=== PATIENT | female | born 1975 | race African-American/Black ===

== ENCOUNTER 2016-08-25 07:38 | Emergency (ER) ==
[2016-08-25 07:54] VITALS: BP 135/89
[2016-08-25] MEDS ORDERED: NORCO-10 PO ONE (08:16)
--- NOTE | 2016-08-25 08:34 | Diag Imaging Result Document ---
PROCEDURE NAME: FINGER(S)-RIGHT - 08/25/2016 X-RAY RIGHT THUMB 3 VIEWS, 08/25/2016: COMPARISON: None. FINDINGS: Bones are intact and normally aligned. Joint spaces and soft tissues are clear. IMPRESSION: Negative exam.
--- NOTE | 2016-08-25 08:54 | PROVIDER DOCUMENTATION ---
HPI-General Adult - General Chief Complaint: Extremity Injury Stated Complaint: THUMB INJURY Time Seen by Provider: 08/25/16 07:47 Source: patient Allergies/Adverse Reactions: Patient Allergies Allergy/AdvReac Type Severity Reaction Status Date / Time No Known Allergies Allergy Verified 07/18/16 07:03 Home Medications: Home Medication List Medication Instructions Recorded Confirmed Last Taken Type Hydrocodone/Acetaminophen [[place] 1 each PO TID PRN PRN 03/13/14 07/18/16 History 10-325 Tablet] Clonazepam [Klonopin] 2 mg PO BID 11/16/15 07/18/16 01/29/16 History Albuterol Sulfate [Albuterol 8.5 gm IH Q4-6H PRN PRN #2 07/18/16 Unknown Rx Sulfate Hfa] [email or web address] Hydrocodone/APAP 7.5 mg/325 mg 1 each PO Q8H PRN PRN #10 tablet 08/25/16 Unknown Rx [[place]-7.5] - History of Present Illness -Gen Adult Nature of Presenting Problems: Slammed R thumb accidentally in a car door 10 AM yesterday morning. Location of Pain/Injury: reports: hand(s) Pain Radiation: reports: no radiation Quality of Pain: reports: aching, pressure, sharp Severity: reports: moderate Onset/Duration: reports: 24 hours ago Timing: reports: still present Context/Activities at Onset: reports: other (See above) Modifying Factors: improves with: rest. worse with: movement Associated Symptoms: reports: denies symptoms Similar Symptoms Previously?: No Recently seen or treated by another doctor?: No Review of Systems - Adult - REVIEW OF SYSTEMS - ADULT Constitutional: reports: no symptoms reported Eyes: reports: no symptoms reported Cardiovascular: reports: no symptoms reported Respiratory: reports: no symptoms reported Gastrointestinal: reports: no symptoms reported Musculoskeletal: reports: see HPI, joint pain, joint swelling Integumentary: reports: no symptoms reported Neurological: reports: no symptoms reported All Other Systems: Reviewed and Negative Past History - Adult - PAST MEDICAL HISTORY-ADULT Review of Records: reports: Nursing Assessment Review, Medications Reviewed Major Childhood Illnesses: reports: denies history Cardiovascular: reports: HTN Musculoskeletal: reports: arthritis, chronic pain (back) Psychiatric: reports: anxiety - PRIOR SURGERIES/PROCEDURES Surgical/Procedure History: reports: hysterectomy, - IMMUNIZATION STATUS Childhood Immunizations: See Nurse Assessment Flu Vaccine: See Nurse Assessment - FAMILY HISTORY Family History: reviewed, not pertinent, other (mother DM) Physical Exam-General - PHYSICAL EXAM-ADULT Initial Vital Signs Reviewed: Yes - CONSTITUTIONAL General Appearance: appears well, alert, no apparent distress - HEAD, EARS, NOSE, MOUTH & THROAT HENMT: normocephalic/atraumatic, moist mucous membranes - NECK Neck: non-tender, full range of motion, supple - RESPIRATORY Respiratory: chest non-tender, lungs clear, normal breath sounds, no pleuratic chest pain - CARDIOVASCULAR Cardiovascular: normal peripheral pulses, regular rate, rhythm, no edema - GASTROINTESTINAL (ABDOMEN) Abdominal Exam: normal bowel sounds, non tender, soft - MUSCULOSKELETAL Extremity: inflammation, swelling, tenderness, other (R distal thumb diffused swelling and bruise. Small amount blood at the base of her R thumb nail base. No indication to do the subungal hematoma tx.) Progress - PLAN OF CARE/RESULTS Progress/Plan/Lab Results: Orders Category Date Time Status FINGER(S)-RIGHT [RAD] Stat Exams 08/25/16 08:02 Draft Hydrocodone/APAP 10 mg/325 mg [[place]-10] Med 08/25/16 08:16 Discontinued 1 each PO NOW ONE Vital Signs Temp Pulse Resp BP Pulse Ox 08/25/16 07:52 98.7 F 105 H 18 135/89 100 No Known Allergies Allergy (Verified 07/18/16 07:03) Hydrocodone/Acetaminophen [[place] 10-325 Tablet] 1 each PO TID PRN PRN 03/13/14 Clonazepam [Klonopin] 2 mg PO BID 11/16/15 Albuterol Sulfate [Albuterol Sulfate Hfa] 8.5 gm IH Q4-6H PRN PRN #2 [email or web address] 07/18/16 - XRAY 1 XRAY Study: Hand (R thumb X-ray, no fx) Departure - Departure Time of Disposition Order: 08:53 DIAGNOSIS: Contusion of thumb, right Qualifiers: Encounter type: initial encounter Damage to nail status: with damage Qualified Code(s): S60.111A - Contusion of right thumb with damage to nail, initial encounter Disposition: HOME 01 Certified Medical Emergency: Emergent Condition: Stable Additional Instructions: Follow up with regular MD in 2-3 days. Return to ER as needed. Prescriptions: Hydrocodone/APAP 7.5 mg/325 mg [[place]-7.5] 1 each PO Q8H PRN PRN #10 tablet PRN Reason: Pain Referrals: Hector Ontiveros MD [Primary Care Provider] -
== END 2016-08-25 09:05 | disposition home or self-care (01) ==
LOC: P.ED 07:38
DX: S60.111A Contusion of right thumb with damage to nail, initial encounter (principal); M79.644 Pain in right finger(s); M25.441 Effusion, right hand; I10 Essential (primary) hypertension; M19.90 Unspecified osteoarthritis, unspecified site; G89.29 Other chronic pain; M54.9 Dorsalgia, unspecified; F41.9 Anxiety disorder, unspecified; Z79.899 Other long term (current) drug therapy; W23.0XXA Caught, crushed, jammed, or pinched between moving objects, initial encounter
CPT/HCPCS: 73140; 99283